=== PATIENT | female | born 1930 | race Caucasian/White ===

== ENCOUNTER 2017-11-25 15:26 | Emergency (ER) | payer MEDICARE, BC ==
[2017-11-25] MEDS ORDERED: Lidocaine 1% 20 ML MDV INJECT ONE (16:21)
[2017-11-25] MEDS ORDERED: Bacitracin Oint 1 GM U/D Packet TOP ONE (16:22)
--- NOTE | 2017-11-25 16:23 | EDM.PDOC ---
ED HPI GENERAL MEDICAL PROBLEM - General Chief Complaint: Lower Extremity Injury/Pain Stated Complaint: FALL Time Seen by Provider: 11/25/17 16:15 Source of Information: Reports: Patient, Family History Limitations: Reports: No Limitations - History of Present Illness INITIAL COMMENTS - FREE TEXT/NARRATIVE: 87-year-old female stumbled and fell onto her knees earlier today. She has some bruising but sustained a transverse laceration across the right knee which needs repair. Also a small amount of left-sided chest discomfort and a few superficial abrasions on her left mandible. She denies any neck pain. Onset: Sudden Duration: Hour(s): (Within the last few hours) Location: Reports: Lower Extremity, Left, Lower Extremity, Right Severity: Moderate Associated Symptoms: Reports: Confusion (Chronic and stable). Denies: Nausea/ Vomiting, Shortness of Breath Right Knee Pain Score (Numeric/FACES): 3 Chest Pain Score (Numeric/FACES): 7 - Related Data Allergies Allergy/AdvReac Type Severity Reaction Status Date / Time No Known Allergies Allergy Verified 04/29/15 23:29 Home Meds: Home Meds Aspirin [Daryn Chewable Aspirin] 81 mg PO DAILY 04/16/15 [History] Cholecalciferol (Vitamin D3) [Vitamin D3] 400 unit PO DAILY 04/16/15 [History] Cyanocobalamin (Vitamin B-12) [Vitamin B-12] 1 tab SL DAILY 04/16/15 [History] Donepezil [Aricept] 5 mg PO DAILY 04/16/15 [History] Multivitamin with Minerals [Multiple Vitamin] 1 tab PO DAILY 04/16/15 [History] Propylene Glycol/PEG 400/Pf [Systane Ultra 0.4-0.3% Eye Drp] 1 drop EYEBOTH DAILY 04/16/15 [History] busPIRone [Buspar] 10 mg PO BID 04/16/15 [History] Acetaminophen [Tylenol Extra Strength] 1,000 mg PO TID #100 tab 04/18/15 [Rx] Sertraline HCl [Sertraline HCl] 50 mg PO BEDTIME 11/25/17 [History] Past Medical History HEENT History: Reports: Impaired Vision Other HEENT History: wears glasses. dry eye Cardiovascular History: Reports: High Cholesterol, Hypertension [employer] History: Reports: Other OB/BYN History: hysterectomy Musculoskeletal History: Reports: Osteoarthritis Neurological History: Reports: Alzheimers Disease Psychiatric History: Reports: Anxiety, Dementia, Depression Immunologic History: Reports: Other (See Below) Other Immunologic History: polymyalgia rheumatica Other Oncologic History: skin cancer from face removed Dermatologic History: Reports: Other (See Below) - Past Surgical History GI Surgical History: Reports: Colonoscopy Social & Family History - Tobacco Use Smoking Status *Q: Never Smoker Years of Tobacco use: 30 Used Tobacco, but Quit: Yes Month/Year Tobacco Last Used: 30 - Caffeine Use Caffeine Use: Reports: Coffee - Alcohol Use Days Per Week of Alcohol Use: 0 - Recreational Drug Use Recreational Drug Use: No Review of Systems - Review of Systems Review Of Systems: Unable To Obtain (Patient has advanced dementia, repetitive answers and unable to describe symptoms) ED EXAM, GENERAL - Physical Exam Exam: See Below Exam Limited By: No Limitations General Appearance: Alert, No Apparent Distress Eye Exam: Bilateral Eye: EOMI Head: Other (A few superficial abrasions along the left mandible) Neck: Normal Inspection, Supple Respiratory/Chest: No Respiratory Distress, Lungs Clear, Other (Patient has some palpable chest discomfort along the left lateral chest but no external evidence of injury.) GI/Abdominal: Soft, Non-Tender Extremities: Other (Patient has a transverse laceration of the right knee 6 cm. Somewhat angled laterally. She also has some superficial bruising on the anterior aspect of the left knee.) Neurological: Alert, Confused, Disoriented (Patient has chronic dementia, chronic confusion and short-term memory and disorientation) Psychiatric: Normal Affect, Normal Mood Skin Exam: Warm, Dry Course - Vital Signs Last Recorded V/S: Last Vital Signs Temp 97.2 F 11/25/17 15:43 Pulse 77 11/25/17 18:45 Resp 18 11/25/17 18:45 BP 187/92 H 11/25/17 18:45 Pulse Ox 95 11/25/17 18:45 - Orders/Labs/Meds Meds: Medications Discontinued Medications Generic Name Dose Route Start Last Admin Trade Name Freq PRN Reason Stop Dose Admin Bacitracin 1 dose 11/25/17 16:22 11/25/17 16:38 Bacitracin Oint 1 Gm TOP 11/25/17 16:23 1 dose ONETIME ONE Administration Lidocaine HCl 20 ml 11/25/17 16:21 11/25/17 16:38 Xylocaine 1% INJECT 11/25/17 16:22 20 ml ONETIME ONE Administration - Re-Assessments/Exams Free Text/Narrative Re-Assessment/Exam: 11/25/17 18:45 1% lidocaine was used to anesthetize laceration, and it was thoroughly washed with normal saline. 11 4-0 Ethilon sutures were used to close the wound. Topical bacitracin and a dressing was applied. The patient developed some chest discomfort during the procedure, an EKG was done which showed a left bundle branch block consistent and unchanged from an EKG on record 2 years ago. She was hypertension for an hour and a half but slowly started to normalize. Just prior to discharge she ambulated up and down the gupta without any significant issues, had no chest discomfort or complaints and her discharge blood pressure had a systolic of 185. They're going to follow this at her assisted living over the next 24-48 hours, I would expect it to continue to normalize. Departure - Departure Time of Disposition: 19:00 Disposition: DC/Tfer to [facility] Condition: Good Clinical Impression: Situational hypertension Laceration of knee, right Qualifiers: Encounter type: initial encounter Qualified Code(s): S81.011A - Laceration without foreign body, right knee, initial encounter Contusion of chest wall Qualifiers: Encounter type: initial encounter Laterality: left Qualified Code(s): S20.212A - Contusion of left front wall of thorax, initial encounter - Discharge Information Instructions: Laceration Care, Adult, [id number] Referrals: PCP,None [Primary Care Provider] - Forms: ED Department Discharge Care Plan Goals: Keep wound covered and clean while healing. Sutures can be removed in 10 days. Monitor blood pressure until normalized, and consider recheck in 24-48 hours if still not back to baseline. Activity as tolerated.
[2017-11-25 18:46] VITALS: BP 187/92
== END 2017-11-25 19:10 ==
LOC: JP.ED 15:26
DX: S81.011A Laceration without foreign body, right knee, initial encounter (principal); S20.212A Contusion of left front wall of thorax, initial encounter; I10 Essential (primary) hypertension; E78.00 Pure hypercholesterolemia, unspecified; F41.9 Anxiety disorder, unspecified; F32.9 Major depressive disorder, single episode, unspecified; Z85.828 Personal history of other malignant neoplasm of skin; Z79.899 Other long term (current) drug therapy; Z79.82 Long term (current) use of aspirin; W19.XXXA Unspecified fall, initial encounter
CPT/HCPCS: 12002; 93005; 93010; 99284-25; 99285-25